=== PATIENT | female | born 1995 | race Caucasian/White ===

== ENCOUNTER 2016-07-11 01:28 | Emergency (ER) | payer OTHER ==
[2016-07-11] MEDS ORDERED: ONDANSETRON ODT 4 MG TAB.RAPDIS ONE (02:39)
[2016-07-11 02:49] LABS: BASOPHIL# 0.2 X 10^3uL (0.0-0.1); EOSINOPHILS 0.7 % (0.0-6.0); EOSINOPHILS# 0.1 X 10^3uL (0.0-0.4); HEMATOCRIT 37.8 % (36.0-48.0); HEMOGLOBIN 12.7 g/dL (12.0-16.0); LYMPHOCYTES# 1.5 X 10^3uL (0.8-3.8); MEAN CELL VOLUME 85.7 fL (80.0-100.0); MEAN CORPUS. HGB CONCENTRATION 33.7 g/dL (32.0-36.0); MEAN CORPUSCULAR HEMOGLOBIN 28.9 pg (29.0-35.0); MEAN PLATELET VOLUME 10.9 fL (7.4-10.4); MONOCYTES 2.8 % (2.0-10.0); MONOCYTES# 0.3 X 10^3uL (0.2-1.0); NEUTROPHILS# 10.2 X 10^3uL (2.6-6.7); PLATELET COUNT 213 X 10^3uL (130-440); RED BLOOD COUNT 4.41 X 10^6uL (4.20-6.10); WHITE BLOOD COUNT 12.3 X 10^3uL (3.9-10.7)
[2016-07-11 02:51] LABS: A/G RATIO 1.2; ALBUMIN 4.1 g/dL (3.5-5.0); ALKALINE PHOSPHATASE 68 U/L (38-126); ALT 24 U/L (9-52); AST 18 U/L (14-36); BILIRUBIN, TOTAL 1.1 mg/dL (0.2-1.3); BLOOD UREA NITROGEN 14 mg/dL (7-17); CALCIUM 9.2 mg/dL (8.4-10.2); CHLORIDE 107 mmol/L (98-107); CREATININE 0.7 mg/dL (0.5-1.0); EST GLOMERULAR FILTRATION RATE > 60 mL/min; GLUCOSE 78 mg/dL (70-100); LIPASE 119 U/L (23-300); POTASSIUM 3.9 mmol/L (3.5-5.1); SODIUM 141 mmol/L (137-145); TOTAL PROTEIN 7.5 g/dL (6.3-8.2)
[2016-07-11] MEDS ORDERED: MAGNESIUM CITRATE SOLN 296 ML BTL ONE (02:54)
[2016-07-11 03:00] LABS: NEUTROPHILS 82.5 % (54.0-75.0)
--- NOTE | 2016-07-11 03:41 | ER PHYSICIAN DOCUMENTATION ---
Physician Documentation [facility] Name:Maricruz Chua Age:20 yrs Sex:Female :1995 Arrival Date:07/11/2016 Time:01:28 Bed1 Private MD:Physician, No ED Domingo Shields Disposition: 07/11/16 03:13 Discharged to Home/Self Care. Impression: Abdominal Pain, Unspecified, Constipation. - Condition is Good. - Discharge Instructions: CONSTIPATION (Adult), Abdomen - ABDOMINAL PAIN, Unknown Cause, (Female). - Medical Reconciliation form form. - Follow up: Private Physician; When: 4- 6 days; Reason: Recheck today's complaints, Continuance of care. - Problem is an acute exacerbation. - Symptoms have improved. HPI: 07/11 02:05 This 20 yrs old Female presents to ER via Private Vehicle with complaints of tl1 Abdominal Pain. 02:05 The patient presents with abdominal pain constipation. The patient has experienced tl1 similar episodes in the past. She says she has a h/o constipation, for which she takes fiber supplements. She is now visiting from [place]. 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 She has been nauseated, but no vomiting or diarrhea. She has had many similar episodes in the past, typically when she does not regularly take several metamucil tablets a day. Pain is not typically post-prandial and is not associated with fatty meals. She has never had surgery or an abdominal u/s. She had a w/u for celiac sprue which was reportedly negative.. 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 Zyrtec Oral - PMHx: SEASONAL ALLERGIES; - PSHx: None; - Tetanus: < 10 years. - Ebola Screening: : Patient negative for fever greater than or equal to 101.5 degrees Fahrenheit, and additional compatible Ebola Virus Disease symptoms. - Immunization history: Flu Vaccine < 1 year. - Social history: Smoking status: Patient states was never smoker of tobacco. ROS: 02:46 Abdomen/GI: Positive for abdominal pain, nausea, constipation, Negative for vomiting, tl1 black/tarry stool, rectal pain, rectal bleeding, bowel incontinence. 02:46 All other systems are negative. Exam: 02:47 Constitutional: This is a well developed, well nourished patient who is awake, alert, tl1 and in no acute distress. Head/Face: Normocephalic, atraumatic. 02:47 ENT: Nares patent. No nasal discharge, no septal abnormalities noted. Tympanic tl1 membranes are normal and external auditory canals are clear. Oropharynx with no redness, swelling, or masses, exudates, or evidence of obstruction, uvula midline. Mucous membranes moist. 02:47 ENT: Mouth: Oral mucosa: pink and intact, dry. 02:47 Neck: ROM/movement: is normal, is supple. 02:47 Cardiovascular: Rate: normal, Rhythm: regular, Heart sounds: normal, Edema: is not appreciated, JVD: is not appreciated. 02:47 Respiratory: Respirations: normal, Breath sounds: are normal. 02:47 Abdomen/GI: Bowel sounds: normal, active, Palpation: soft, moderate abdominal tenderness, in the epigastric area, Liver: no appreciated palpable abnormalities. 02:47 Back: CVA tenderness, is absent. 02:47 Musculoskeletal/extremity: Exam is negative for acute changes. 02:47 Skin: Exam negative for 02:47 Neuro: Exam negative for acute changes. Vital Signs: 01:39 BP 157 / 84; Pulse 90; Resp 16; Temp 98.5(O); Pulse Ox 95% on R/A; Weight 71.67 kg; rh Height 5 ft. 4 in. (162.56 cm); Pain 8/10; 03:39 BP 120 / 87; Pulse 86; Resp 16; Pulse Ox 97% on R/A; Pain 3/10; rh 01:39 Body Mass Index 27.12 (71.67 kg, 162.56 cm) rh MDM: 02:05 Patient medically screened. tl1 02:48 Differential diagnosis: appendicitis, bowel obstruction, cholecystitis, Cholelithiasis, tl1 diverticulitis, Ectopic , Endometriosis, gastroesophageal reflux disease, Hepatitis, Irritable bowel syndrome, pancreatitis, Peptic Ulcer Disease, Perf. Duodenal Ulcer, Perf. Gastric Ulcer, Pyelonephritis, Ureterolithiasis, CONSTIPATION. Data reviewed: vital signs, nurses notes, and as a result, I will discharge patient. Test interpretation: by ED physician or midlevel provider: plain radiologic studies. Counseling: I had a detailed discussion with the patient and/or guardian regarding: the historical points, exam findings, and any diagnostic results supporting the discharge/admit diagnosis, lab results, radiology results, the need for outpatient follow up, to return to the emergency department if symptoms worsen or persist or if there are any questions or concerns that arise at home. Medication response: The patient's symptoms have improved. Response to treatment: the patient's symptoms have markedly improved after treatment, and as a result, I will discharge patient. ED course: IV access was challenging. She was able to drink most of a bottle of Mag Citrate. She received 2 liters of IVNS and was feeling much improved at the time of d/c.. 07/11 02:57 Order name: COMPREHENSIVE METABOLIC PANEL; Complete Time: 03:12 EDMS 07/11 03:06 Interpretation: SODIUM 141; POTASSIUM 3.9; CHLORIDE 107; CARBON DIOXIDE 20; GLUCOSE 78; tl1 BLOOD UREA NITROGEN 14; CREATININE 0.7. 07/11 02:57 Order name: LIPASE; Complete Time: 03:12 EDMS 07/11 03:09 Interpretation: Normal: LIPASE 119. tl1 07/11 02:58 Order name: HCG, URINE; Complete Time: 03:12 EDMS 07/11 03:09 Interpretation: Normal: HCG, URINE NEGATIVE. tl1 07/11 03:01 Order name: CBC AUTO DIF, MDIF/RMOR IF IND; Complete Time: 03:12 EDNM 07/11 03:09 Interpretation: WHITE BLOOD COUNT 12.3; HEMOGLOBIN 12.7; HEMATOCRIT 37.8; PLATELET tl1 COUNT 213; NEUTROPHILS 82.5; LYMPHOCYTES 12.0. 07/11 01:56 Order name: ABDOMEN; 2V DECUB/ERECT [id number] EDNM 07/11 14:36 Order name: ABDOMEN; 2V DECUB/ERECT [id number] EDNM 07/11 01:39 Order name: Urine Dip; Complete Time: 01:45 rh 07/11 01:46 Order name: Iv Saline Lock; Complete Time: 01:46 rh Dispensed Medications: 02:15 Drug: NS 0.9% 1000 ml; {Note: RIGHT FOOT.} Route: IV; Rate: bolus; Site: left hand; rh 02:52 Follow up: IV Status: Completed infusion; IV Intake: 1000ml rh 02:30 Drug: Zofran 4 mg; Route: PO; rh 02:49 Follow up: Response: No adverse reaction rh 02:43 Drug: Magnesium Citrate Liquid 300 ml; Route: PO; rh 02:52 Follow up: Response: No adverse reaction rh 02:52 Drug: NS 0.9% 1000 ml; {Note: RIGHT FOOT.} Route: IV; Rate: bolus; Site: left hand; rh 03:30 Follow up: IV Status: Completed infusion; IV Intake: 1000ml rh Point of Care Testing: Urine Dip: 01:45 pH: 6.0; ; Specific [place]: 1.030; Ketones: Negative; Glucose: Negative; Protein: rh Negative; Leukocytes: Trace; Nitrite: Negative ; Blood: Negative; Bilirubin: Negative ; Urobilinogen: Normal Signatures: Domingo Salas MD MD tl1 Sadie Linares dayana dudley
--- NOTE | 2016-07-11 03:41 | ER NURSING DOCUMENTATION ---
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 Transition of care: Home. 01:32 Method Of Arrival: Private Vehicle rh Triage Assessment: 01:34 General: Appears in no apparent distress, Behavior is cooperative. Pain: Complains of rh pain in epigastric area. EENT: Oral mucosa is moist. Neuro: Level of Consciousness is awake, alert, obeys commands, Oriented to person, place, time, event. Cardiovascular: Capillary refill < 3 seconds. Respiratory: Airway is patent. GI: Abdomen is non- distended Abdomen is tender to palpation in epigastric area Reports cramping, nausea. : No deficits noted. Derm: Skin is intact, is healthy with good turgor, Skin is pink, warm & dry. 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 Zyrtec Oral - PMHx: SEASONAL ALLERGIES; - PSHx: None; - Tetanus: < 10 years. - Ebola Screening: : Patient negative for fever greater than or equal to 101.5 degrees Fahrenheit, and additional compatible Ebola Virus Disease symptoms. - Immunization history: Flu Vaccine < 1 year. - Social history: Smoking status: Patient states was never smoker of tobacco. Screenin:40 Infectious Disease Risk None. Abuse screen: Denies threats or abuse. Denies injuries rh from another. Nutritional screening: No deficits noted. Assessment: 01:40 See Triage Assessment done by same RN. rh Vital Signs: 01:39 BP 157 / 84; Pulse 90; Resp 16; Temp 98.5(O); Pulse Ox 95% on R/A; Weight 71.67 kg; rh Height 5 ft. 4 in. (162.56 cm); Pain 8/10; 03:39 BP 120 / 87; Pulse 86; Resp 16; Pulse Ox 97% on R/A; Pain 3/10; rh 01:39 Body Mass Index 27.12 (71.67 kg, 162.56 cm) rh ED Course: 01:29 Patient arrived in ED. em2 01:29 Physician, No is Private Physician. em2 01:32 Sadie Linares is Primary Nurse. rh 01:32 Triage completed. rh 01:40 Notified ED Physician of patient's arrival and chief complaint. Dr. Salas notified. rh 01:40 Valuables Remains with patient Patient has correct armband on for positive rh identification. Bed in low position. Call light in reach. Side rails up X 1. Family accompanied patient. 01:43 Patient moved to radiology. gavino 01:55 Patient moved back from radiology. gavino 01:56 ABDOMEN; 2V DECUB/ERECT [id number] In Process Unspecified. EDMS 02:04 Domingo Salas MD is Attending Physician. tl1 02:30 Inserted peripheral IV: 22 gauge in left hand and blood collected. LEFT FOOT. rh Administered Medications: 02:15 Drug: NS 0.9% 1000 ml; {Note: RIGHT FOOT.} Route: IV; Rate: bolus; Site: left hand; rh 02:52 Follow up: IV Status: Completed infusion; IV Intake: 1000ml rh 02:30 Drug: Zofran 4 mg; Route: PO; rh 02:49 Follow up: Response: No adverse reaction rh 02:43 Drug: Magnesium Citrate Liquid 300 ml; Route: PO; rh 02:52 Follow up: Response: No adverse reaction rh 02:52 Drug: NS 0.9% 1000 ml; {Note: RIGHT FOOT.} Route: IV; Rate: bolus; Site: left hand; rh 03:30 Follow up: IV Status: Completed infusion; IV Intake: 1000ml rh Point of Care Testing: Urine Dip: 01:45 pH: 6.0; ; Specific [place]: 1.030; Ketones: Negative; Glucose: Negative; Protein: rh Negative; Leukocytes: Trace; Nitrite: Negative ; Blood: Negative; Bilirubin: Negative ; Urobilinogen: Normal Intake: 02:52 IV: 1000ml; Total: 1000ml. rh 03:30 IV: 1000ml; Total: 2000ml. rh Outcome: 03:13 Discharge ordered by . tl1 03:39 Discharged to home ambulatory. 03:39 Condition: improved 03:39 Discharge Assessment: Patient awake, alert and oriented x 3. No cognitive and/or functional deficits noted. Patient verbalized understanding of disposition instructions. 03:39 Discharge instructions given to patient, family, Instructed on discharge instructions, follow up and referral plans. Demonstrated understanding of instructions. 03:39 IV D/Lawson 03:40 Patient left the ED. 07/12 08:22 Discharge F/U Call: Unable to reach: non-working number lp Signatures: Dispatcher [employer] EDMS Anneliese Gates, RN RN lp Leigh Ann Clark-reg, Wendie-paul em2 Domingo Salas MD MD tl1 Sadie Linares
--- NOTE | 2016-07-11 13:37 | RADIOLOGY REPORT ---
Three views of the abdomen without prior films for comparison demonstrate a normal bowel gas patter. There is a moderate amount of retained fecal material throughout the colon. No pathologic calcifications or free air are identified. IMPRESSION: Moderate retained fecal material throughout the colon. MTDD
== END 2016-07-11 03:41 | disposition home or self-care (01) ==
LOC: ER 01:28
DX: R10.13 Epigastric pain (principal); K59.00 Constipation, unspecified; R11.0 Nausea; E86.0 Dehydration
CPT/HCPCS: 74020; 80053; 83690; 84703; 85025; 96360; 99284